=== PATIENT | male | born 1960 | race Caucasian/White ===

== ENCOUNTER → 2016-08-29 | Outpatient (CLI) | payer OTHER ==
[~2016-08-29] MED LIST: IMODIUM 2MG CAPS2 MG PO; NORCO 325 MG-51 TAB PO; PRINZIDE 12.5 M1 TAB PO; ZOFRAN 4MG T4 MG/TAB PO
== END ==
LOC: COL.RAD 10:17
DX: Z02.71 Encounter for disability determination (principal); M77.31 Calcaneal spur, right foot; M77.32 Calcaneal spur, left foot; M54.5 Low back pain; M25.561 Pain in right knee; M79.606 Pain in leg, unspecified